=== PATIENT | male | born 1950 | race Caucasian/White ===

== ENCOUNTER 2017-02-14 15:44 | Emergency (ER) | payer MEDICARE ==
[~2017-02-14] VITALS: Ht 180.3 cm; Wt 99.8 kg
[~2017-02-14 15:44] MED LIST: ALLEGRA180 MG PO; AMOX TR-K CLV1 EAC4 PO; ATENOLOL 25 MG25 M1 PG; COZAAR 50 MG TA50 MG PO; CRESTOR10 MG PO; DEXILANT60 MG PO; HYDROCHLOROTHIA25 M1 PO; KEFLEX500 MG PO; LORTABELXR PO; MEDROLDOSEPACK PO; PRAVACHOL40 MG PO; ROBITUSSIN15 MG/5 M1 PO; TESSALON PERLE100 MG PO
[2017-02-14 16:57] VITALS: BP 130/80
== END 2017-02-14 16:57 | disposition home or self-care (01) ==
LOC: M.ERS 15:44
DX: B34.9 Viral infection, unspecified (principal); E78.00 Pure hypercholesterolemia, unspecified; F10.99 Alcohol use, unspecified with unspecified alcohol-induced disorder; Z88.0 Allergy status to penicillin; Z88.8 Allergy status to other drugs, medicaments and biological substances

== ENCOUNTER 2018-12-30 08:27 | Emergency (ER) | payer MEDICARE, OTHER ==
[~2018-12-30] VITALS: Ht 170.2 cm; Wt 101.9 kg
[2018-12-30] MEDS ORDERED: ALPRAZOLAM XR3 MG PO (08:42)
[2018-12-30] MEDS ORDERED: ELIQUIS5 MG PO (08:43)
[2018-12-30] MEDS ORDERED: LIPITOR 20 MG T20 M1 PO (08:43)
[2018-12-30] MEDS ORDERED: ERGOCALCIF50000 UNIT PO (08:44)
[2018-12-30] MEDS ORDERED: CARVEDILOL12.5 MG PO (08:44)
[2018-12-30] MEDS ORDERED: PROSCAR 5MG TABL5 MG PO (08:45)
[2018-12-30] MEDS ORDERED: FUROSEMIDE 20 M20 MG PO (08:45)
[2018-12-30] MEDS ORDERED: REVLIMID5 MG PO (08:45)
[2018-12-30] MEDS ORDERED: LISINOPRIL2.5 MG PO (08:46)
[2018-12-30] MEDS ORDERED: MORPHINE SULFAT15 M3 PO (08:47)
[2018-12-30 08:48] LABS: ABSOLUTE EOSINOPHILS 0.1 thou/uL (0.0-0.7); ABSOLUTE LYMPHOCYTES 0.5 thou/uL (0.8-5.3); ABSOLUTE MONOCYTES 0.5 thou/uL (0.0-1.2); ABSOLUTE NEUTROPHILS 4.9 thou/uL (1.6-8.1); BASOPHILS 0.1 %; EOSINOPHILS 1.7 %; HEMATOCRIT 34.7 % (42.0-52.0); HEMOGLOBIN 11.8 gm/dL (14.0-18.0); LYMPHOCYTES 8.1 %; MCH 30.3 pg (26.0-34.0); MCV 89.1 fL (80.0-100.0); MONOCYTES 8.2 %; MPV 7.6 fl. (7.2-11.1); NUCLEATED RBCS 0 /100WBC; PLATELET COUNT* 124 thou/uL (150-400); POLYS 81.9 %; RBC 3.89 mil/uL (4.50-6.00); RDW-CV 16.6 % (10.5-14.5)
[2018-12-30] MEDS ORDERED: MS CONTIN30 MG PO (08:48)
[2018-12-30] MEDS ORDERED: ONDANSETRON HCL4 M2 PO (08:49)
[2018-12-30] MEDS ORDERED: PROTONIX40 M2 PO (08:50)
[2018-12-30] MEDS ORDERED: K-PHOS NEUTRAL250 MG PO (08:51)
[2018-12-30 08:58] LABS: CALCIUM 9.1 mg/dL (8.5-10.1); CREATININE 1.4 mg/dL (0.6-1.3); POTASSIUM 3.3 mmol/L (3.5-5.1)
[2018-12-30 09:02] LABS: ALBUMIN 3.8 g/dL (3.4-5.0); TOTAL BILIRUBIN 0.9 mg/dL (<0.1-1.0); TOTAL PROTEIN 7.2 g/dL (6.4-8.2)
[2018-12-30] MEDS ORDERED: PHENERGAN 25 MG25 M1 PO (09:02)
[2018-12-30] MEDS ORDERED: SERTRALINE HCL100 MG PO (09:03)
[2018-12-30] MEDS ORDERED: SENOKOT-S1 TA2 PO (09:03)
[2018-12-30 09:06] LABS: APTT 30.1 Seconds (25.0-31.3); PROTIME 10.7 Seconds (9.20-11.50)
[2018-12-30] MEDS ORDERED: KLOR-CON 1010 MEQ PO (09:07)
--- NOTE | 2018-12-30 14:30 | EKG ---
[place] [address] ELECTROCARDIOGRAM REPORT Name: CHADD IYER [id number] Admission: 12/30/18 Attend Phys: Discharge: 12/30/18 Date of : 48 Report #: [id number] THIS REPORT FOR: //name// [facility] ED Test Date: 2018-12-30 Test Time: 08:34:54 Pat Name: CHADD SHIREEN Department: Room: Gender: M Senior Planner: : 1950 Requested By: Johnny Win Order Number: [id number] MD: Chuckie Hollins Measurements Intervals [place] Rate: 75 P: -2 [place]: 196 QRS: -33 QRSD: 94 T: 40 QT: 433 QTc: 484 Interpretive Statements Sinus rhythm Left axis deviation Abnormal R-wave progression, early transition Borderline prolonged QT interval Baseline wander in lead(s) II,III,aVL,aVF,V3,V4,V6 Compared to ECG 08/12/2009 20:40:50 Sinus arrhythmia no longer present Electronically Signed On 12-30-2018 14:30:00 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
== END 2018-12-30 09:52 | disposition short-term general hospital (02) ==
LOC: M.ERS 08:27
PROVIDERS: Family Medicine
DX: I61.2 Nontraumatic intracerebral hemorrhage in hemisphere, unspecified (principal); E78.00 Pure hypercholesterolemia, unspecified; Z88.0 Allergy status to penicillin; Z88.8 Allergy status to other drugs, medicaments and biological substances

== ENCOUNTER 2019-02-03 13:00 | Emergency (ER) | payer MEDICARE, OTHER ==
[~2019-02-03] VITALS: Ht 170.2 cm; Wt 99.3 kg
[~2019-02-03 13:00] MED LIST changes: +ALPRAZOLAM XR3 MG PO; +CARVEDILOL12.5 MG PO; +ELIQUIS5 MG PO; +ERGOCALCIF50000 UNIT PO; +FUROSEMIDE 20 M20 MG PO; +K-PHOS NEUTRAL250 MG PO; +KLOR-CON 1010 MEQ PO; +LIPITOR 20 MG T20 M1 PO; +LISINOPRIL2.5 MG PO; +MORPHINE SULFAT15 M3 PO; +MS CONTIN30 MG PO; +ONDANSETRON HCL4 M2 PO; +PHENERGAN 25 MG25 M1 PO; +PROSCAR 5MG TABL5 MG PO; +PROTONIX40 M2 PO; +REVLIMID5 MG PO; +SENOKOT-S1 TA2 PO; +SERTRALINE HCL100 MG PO
[2019-02-03] MEDS ORDERED: CARDURA2 MG PO (13:16)
[2019-02-03] MEDS ORDERED: VITAMIN D50000 UNIT PO (13:18)
[2019-02-03] MEDS ORDERED: FINASTERIDE5 MG PO (13:18)
[2019-02-03] MEDS ORDERED: FLOMAX0.4 MG PO (13:18)
[2019-02-03] MEDS ORDERED: LIPITOR 20 MG T20 M1 PO (13:19)
[2019-02-03] MEDS ORDERED: LIDOCARE1 EACH TOP (13:19)
[2019-02-03] MEDS ORDERED: METHOCARBAMOL750 MG PO (13:20)
[2019-02-03] MEDS ORDERED: XTAMPZA ER13.5 MG PO (13:21)
[2019-02-03 14:20] LABS: ABSOLUTE EOSINOPHILS 0.2 thou/uL (0.0-0.7); ABSOLUTE LYMPHOCYTES 0.6 thou/uL (0.8-5.3); ABSOLUTE MONOCYTES 0.5 thou/uL (0.0-1.2); ABSOLUTE NEUTROPHILS 2.8 thou/uL (1.6-8.1); BASOPHILS 0.4 %; EOSINOPHILS 4.6 %; HEMATOCRIT 32.2 % (42.0-52.0); HEMOGLOBIN 11.2 gm/dL (14.0-18.0); MCH 30.9 pg (26.0-34.0); MCHC 34.9 g/dL (28.0-37.0); MCV 88.6 fL (80.0-100.0); MONOCYTES 12.6 %; MPV 7.9 fl. (7.2-11.1); NUCLEATED RBCS 0 /100WBC; PLATELET COUNT* 131 thou/uL (150-400); POLYS 68.4 %; RBC 3.63 mil/uL (4.50-6.00); RDW-CV 16.4 % (10.5-14.5)
[2019-02-03 14:30] LABS: APTT 27.1 Seconds (25.0-31.3); PROTIME 10.7 Seconds (9.20-11.50)
[2019-02-03 14:34] LABS: CALCIUM 9.3 mg/dL (8.5-10.1); CREATININE 1.1 mg/dL (0.6-1.3); POTASSIUM 3.4 mmol/L (3.5-5.1)
[2019-02-03 14:38] LABS: ALBUMIN 3.6 g/dL (3.4-5.0); TOTAL BILIRUBIN 0.6 mg/dL (<0.1-1.0); TOTAL PROTEIN 6.8 g/dL (6.4-8.2)
--- NOTE | 2019-02-03 15:19 | EKG ---
[place] [address] ELECTROCARDIOGRAM REPORT Name: CHADD IYER Room: [facility]#: [id number] Admission: 02/03/19 Attend Phys: Discharge: Date of : 48 Report #: [id number] THIS REPORT FOR: //name// [facility] ED Test Date: 2019-02-03 Test Time: 13:44:20 Pat Name: CHADD IYER Department: Room: Gender: Digital Account Director: : 1950 Requested By: Griselda Middleton Order Number: [id number] MD: Alonso Benitez Measurements Intervals [place] Rate: 67 P: 21 [place]: 231 QRS: -16 QRSD: 103 T: 15 QT: 416 QTc: 439 Interpretive Statements Sinus rhythm Prolonged [place] interval Left ventricular hypertrophy Compared to ECG 12/30/2018 08:34:54 First degree AV block now present Left ventricular hypertrophy now present Left-axis deviation no longer present Electronically Signed On 02-03-2019 15:19:03 EDI COORDINATOR by Alonso Benitez [email or web address] <ELECTRONICALLY SIGNED> By: Alonso Benitez MD, [facility] 02/03/19 1519 1344 1344 Alonso Benitez MD, FAC /EPI
[2019-02-03 15:57] VITALS: BP 158/81
== END 2019-02-03 15:58 | disposition home or self-care (01) ==
LOC: M.ERS 13:00
PROVIDERS: Personal Emergency Response Attendant
DX: I16.0 Hypertensive urgency (principal); I10 Essential (primary) hypertension; E78.5 Hyperlipidemia, unspecified; E78.00 Pure hypercholesterolemia, unspecified; Z86.73 Personal history of transient ischemic attack (TIA), and cerebral infarction without residual deficits; Z88.8 Allergy status to other drugs, medicaments and biological substances